=== PATIENT | female | born 1940 | race Caucasian/White ===

== ENCOUNTER → 2017-05-23 | Outpatient (CLI) | payer MEDICARE, BC ==
--- NOTE | 2017-05-23 10:42 | XR ---
EXAMINATION TYPE: XR chest 2V DATE OF EXAM: 05/23/2017 COMPARISON: NONE HISTORY: Malaise, shortness of breath and fatigue TECHNIQUE: Frontal and lateral views of the chest are obtained. FINDINGS: There is eventration of the right hemidiaphragm. No pneumonia, pneumothorax, or pleural ef fusion. Cardiac mediastinal silhouette, pulmonary vascularity and kuldeep within normal limits. There is a spinal curvature. IMPRESSION: No acute cardiopulmonary process.
== END ==
LOC: RADXRMAIN 09:11
PROVIDERS: ATTEND Family Medicine
DX: R53.81 Other malaise (principal)
CPT/HCPCS: 71020

== ENCOUNTER → 2017-06-16 | Outpatient (CLI) | payer MEDICARE, BC ==
--- NOTE | 2017-06-17 10:08 | ECHOF ---
Referral Reason:Fatigue R53.83 MEASUREMENTS -------- HEIGHT: 162.6 cm WEIGHT: 80.3 kg BP: 118/78 IVSd: 1.2 cm (0.6 - 1.1) LVIDd: 4.0 cm (3.9 - 5.3) LVPWd: 1.0 cm (0.6 - 1.1) IVSs: 1.2 cm LVIDs: 2.7 cm LVPWs: 1.5 cm LAESV Index (A-L): 30.92 ml/m Ao Diam: 2.4 cm (2.0 - 3.7) AV Cusp: 1.2 cm (1.5 - 2.6) LA Diam: 3.2 cm (2.7 - 3.8) MV EXCURSION: 11.106 mm (> 18.000) MV EF SLOPE: 66 mm/s (70 - 150) EPSS: 0.7 cm MV E Enmanuel: 0.83 m/s MV DecT: 335 ms MV A Enmanuel: 1.23 m/s MV E/A Ratio: 0.68 RAP: 5.00 mmHg RVSP: 11.22 mmHg FINDINGS -------- Sinus rhythm. This was a technically adequate study. There is mild concentric left ventricular hypertrophy. Overall left ventricular systolic function is normal with, an EF between 55 - 60 %. The right ventricle is normal in size. LA is midly dilated 29-33ml/m2. The right atrial size is normal. There is mild aortic valve sclerosis. The mitral valve leaflets are moderately thickened. Moderate mitral regurgitation is present. Mild tricuspid regurgitation present. There is no evidence of pulmonary hypertension. The right ventricular systolic pressure, as measured by Doppler, is 11.22mmHg. There is no pulmonic regurgitation present. The aortic root size is normal. There is no pericardial effusion. CONCLUSIONS -------- 1. There is mild concentric left ventricular hypertrophy. 2. Overall left ventricular systolic function is normal with, an EF between 55 - 60 %. 3. LA is midly dilated 29-33ml/m2. 4. There is mild aortic valve sclerosis. 5. The mitral valve leaflets are moderately thickened. 6. Moderate mitral regurgitation is present. 7. Mild tricuspid regurgitation present. 8. There is no evidence of pulmonary hypertension. 9. The right ventricular systolic pressure, as measured by Doppler, is 11.22mmHg. MOLD DUMPER: Isabel Ross RDCS
== END | disposition home or self-care (01) ==
LOC: RADECHMAIN 12:58
PROVIDERS: ATTEND Family Medicine
DX: I08.1 Rheumatic disorders of both mitral and tricuspid valves (principal); I10 Essential (primary) hypertension; R53.83 Other fatigue
CPT/HCPCS: 93306

== ENCOUNTER → 2017-09-08 | Outpatient (CLI) | payer MEDICARE, BC ==
--- NOTE | 2017-09-08 16:16 | BD ---
EXAMINATION TYPE: MG DEXA axial skeleton. DATE OF EXAM: 09/08/2017 CLINICAL HISTORY: 77-year-old female osteoarthritis, postmenopausal screening Height: 62.5 Weight: 173 FRAX RISK QUESTIONS: Alcohol (3 or more units per day): no Family History (Parent hip fracture): no Glucocorticoids (More than 3mos): no (Ex: prednisone, prednisolone, methylprednisolone, dexamethasone, and hydrocortisone). History of Fracture in Adulthood: lower leg Secondary Osteoporosis: 1. Type 1 Diabetes: no 2. Hyperthyroidism: no 3. Menopause before 45: no 4. Malnutrition: no 5. Chronic liver disease: no Rheumatoid Arthritis: no Current Tobacco Use: no RISK FACTORS HISTORY OF: Family History of Osteoporosis: yes; mother & sister Active: yes Diet low in dairy products/other sources of calcium: no Postmenopausal woman: yes Take estrogen and/or progesterone medications: not now How lon or 3 years Lost more than 2 inches in height since high school: no, not more than Frequent falls: no Poor Health: no Hyperparathyroidism: no Adrenal Insufficiency: no MEDICATIONS: Prednisone or other steroids: no Thyroid Medications: no Osteoporosis Medications: no Additional Medications: cholesterol meds; just started to take calcium & Vitamin D Additional History: osteoarthritis EXAM MEASUREMENTS: Bone mineral densitometry was performed using the boosk System. Bone mineral density as measured about the Lumbar spine is: ----- L1-L4(G/cm2): 1.021 T Score Values are as follows: ----- L2: -1.8 ----- L3: -0.8 ----- L4: -1.8 ----- L1-L4: -1.3 Bone mineral density has: Decreased -4.7% since study of: 07/09/2012 Bone mineral density about the R hip (g/cm2): 0.705 Bone mineral density about the L hip (g/cm2): 0.759 T Score values are as follows: -----R Neck: -2.4 -----L Neck: -2.0 -----R Total: -1.3 -----L Total: -1.5 Bone mineral density has: Decreased -5.6% since study of: 07/09/2012 IMPRESSION: Osteopenia (T Score between -2.5 and -1 as noted by T score values in the lumbar spine and both hips) . Note that measurements border on osteoporosis at the right hip. There is slightly increased risk of fracture and the patient may be considered for treatment. Re-Scre en 2-5 years. NOTE: T-SCORE=SD OF THE YOUNG ADULT MEAN.
== END | disposition home or self-care (01) ==
LOC: RADBDWWP 12:43
PROVIDERS: ATTEND Family Medicine
DX: M85.88 Other specified disorders of bone density and structure, other site (principal); M85.852 Other specified disorders of bone density and structure, left thigh; M85.851 Other specified disorders of bone density and structure, right thigh
CPT/HCPCS: 77080

== ENCOUNTER → 2018-03-24 | Outpatient (CLI) | payer MEDICARE, BC ==
--- NOTE | 2018-03-24 10:41 | MM ---
Reason for exam: follow-up at short interval from prior study. Last mammogram was performed 6 months ago. History: Patient is postmenopausal and has history of high-risk lesion on a previous biopsy at age 77. High risk US breast needle core RT of the right breast, September 23, 2017. Excisional biopsy of the right breast. Physical Findings: Nurse did not find any significant physical abnormalities on exam. MG 3D Diag Mammo W/Cad RT CC and MLO view(s) were taken of the right breast. Prior study comparison: September 23, 2017, right breast MG diagnostic mammo RT wo CAD. August 28, 2005, bilateral screening mammogram w/CAD. The breast tissue is heterogeneously dense. This may lower the sensitivity of mammography. Finding: There are typically benign vascular, round, linear calcifications in the right breast. Previous mammotome biopsy in the right breast. There is no dominant lesion. Asymmetric breast tissue in the right breast at clip and medial inferior aspect, stable. These results were verbally communicated with the patient and result sheet given to the patient on 03/24/18. ASSESSMENT: Benign, BI-RAD 2 RECOMMENDATION: Routine screening mammogram of both breasts in 6 months. Back on schedule.
== END | disposition home or self-care (01) ==
LOC: RADMAMWWP 10:02
PROVIDERS: ATTEND Surgery
DX: R92.8 Other abnormal and inconclusive findings on diagnostic imaging of breast (principal)
CPT/HCPCS: 77065; G0279

== ENCOUNTER → 2018-04-15 | Outpatient (CLI) | payer MEDICARE, BC ==
--- NOTE | 2018-04-15 11:58 | ECHOF ---
Referral Reason:R53.83 Fatigue,R55 Syncope MEASUREMENTS -------- HEIGHT: 160.0 cm WEIGHT: 80.3 kg BP: 137/71 RVIDd: 2.6 cm (< 3.3) IVSd: 1.0 cm (0.6 - 1.1) LVIDd: 3.4 cm (3.9 - 5.3) LVPWd: 1.1 cm (0.6 - 1.1) IVSs: 1.2 cm LVIDs: 2.4 cm LVPWs: 1.4 cm LA Diam: 2.6 cm (2.7 - 3.8) LAESV Index (A-L): 18.02 ml/m Ao Diam: 2.4 cm (2.0 - 3.7) AV Cusp: 1.3 cm (1.5 - 2.6) MV EXCURSION: 13.818 mm (> 18.000) MV EF SLOPE: 46 mm/s (70 - 150) EPSS: 0.6 cm MV E Enmanuel: 1.21 m/s MV DecT: 232 ms MV A Enmanuel: 1.39 m/s MV E/A Ratio: 0.87 AV maxP.41 mmHg AV meanP.47 mmHg RAP: 5.00 mmHg RVSP: 35.07 mmHg FINDINGS -------- Sinus rhythm with extra systolic beats. This was a technically good study. The left ventricular size is normal. There is borderline concentric left ventricular hypertrophy. Overall left ventricular systolic function is normal with, an EF between 55 - 60 %. The right ventricle is normal in size. Normal LA size by volume 22+/-6 ml/m2. The right atrium is normal in size. There is mild aortic valve sclerosis. The mitral valve leaflets are mild to moderately thickened. Moderate mitral annular calcification present. Mild tricuspid regurgitation present. There is mild pulmonary hypertension. The right ventricular systolic pressure, as measured by Doppler, is 35.07mmHg. The pulmonic valve was not well visualized. The aortic root size is normal. Normal inferior vena cava with normal inspiratory collapse consistent with estimated right atrial pre ssure of 5 mmHg. There is no pericardial effusion. CONCLUSIONS -------- 1. Sinus rhythm with extra systolic beats. 2. This was a technically good study. 3. The left ventricular size is normal. 4. There is borderline concentric left ventricular hypertrophy. 5. Overall left ventricular systolic function is normal with, an EF between 55 - 60 %. 6. The right ventricle is normal in size. 7. Normal LA size by volume 22+/-6 ml/m2. 8. The right atrium is normal in size. 9. There is mild aortic valve sclerosis. 10. The mitral valve leaflets are mild to moderately thickened. 11. Moderate mitral annular calcification present. 12. Mild tricuspid regurgitation present. 13. There is mild pulmonary hypertension. 14. The right ventricular systolic pressure, as measured by Doppler, is 35.07mmHg. 15. The pulmonic valve was not well visualized. 16. The aortic root size is normal. 17. Normal inferior vena cava with normal inspiratory collapse consistent with estimated right atrial pressure of 5 mmHg. 18. There is no pericardial effusion. [employer]ES DEMONSTRATOR: Jessica Morfin RDCS
--- NOTE | 2018-04-15 12:11 | US ---
EXAMINATION TYPE: US carotid duplex BILAT DATE OF EXAM: 04/15/2018 COMPARISON: US 05/22/2010 CLINICAL HISTORY: R53.83 Fatigue,R55 Syncope. EXAM MEASUREMENTS: RIGHT: Peak Systolic Velocity (PSV) cm/sec ----- Right CCA: 71.6 ----- Right ICA: 69.0 ----- Right ECA: 75.5 ICA/CCA ratio: 1.0 RIGHT: End Diastole cm/sec ----- Right CCA: 22.0 ----- Right ICA: 35.1 ----- Right ECA: 16.8 LEFT: Peak Systolic Velocity (PSV) cm/sec ----- Left CCA: 72.5 ----- Left ICA: 121.0 ----- Left ECA: 48.3 ICA/CCA ratio: 1.7 LEFT: End Diastole cm/sec ----- Left CCA: 27.3 ----- Left ICA: 43.4 ----- Left ECA: 9.8 VERTEBRALS (direction of flow): Right Vertebral: Antegrade Left Vertebral: Antegrade Rhythm: Arrhythmia Incidental thyroid nodule. Mild amount of plaque visualized bilaterally. No elevated velocities. Grayscale, color Doppler, spectral Doppler imaging performed of the carotid arteries. Waveform analys is does not show significant stenosis. IMPRESSION: No hemodynamic significant stenosis of the proximal internal carotid arteries bilaterall y by Doppler criteria, an indirect measurement of carotid stenosis. Cardiac arrhythmia. Additional findings above.
--- NOTE | 2018-04-15 13:01 | EST ---
EXERCISE STRESS DATE OF SERVICE: 04/15/2018 AGE: 78 SEX: F HT: 63" WT: 177 PROTOCOL: Baldo Stress Test STAGE: 1 DURATION OF EXERCISE: 2:00 HEART RATE REST: 104 BLOOD PRESSURE REST: 137/71 MAXIMUM HEART RATE ACHIEVED: 158 MAXIMUM BLOOD PRESSURE: 201/82 85% MPHR: 122 100% MPHR: 144 METS: 3.4 INDICATIONS: Syncope CLINICAL INFORMATION: STRESS DATA: Pretesting physical examination showed a heart rate of 104, pressure is 137/71 mmHg. Baseline EKG showed sinus mechanism. The patient exercised on the treadmill according to Baldo protocol for a total of 2 minutes and achieved 3.4 METS with max heart rate was 158 which is about 100% of maximum predicted heart rate. Maximum blood pressure was 201/82 mmHg. Clinically, the patient did not have any symptoms of chest pain or discomfort and the EKG did not show any significant ST or T- wave abnormalities consistent with ischemia. CONCLUSION: 1. Poor exercise tolerance. 2. Exaggerated hypertension in response to exercise. 3. Normal EKG in response to exercise. 4. Essentially normal stress test for the patient. MMODL / IJN: [id number] /
== END | disposition home or self-care (01) ==
LOC: RADUSMAIN 09:04
PROVIDERS: ATTEND Family Medicine
DX: I49.9 Cardiac arrhythmia, unspecified (principal); I65.23 Occlusion and stenosis of bilateral carotid arteries; I08.3 Combined rheumatic disorders of mitral, aortic and tricuspid valves; I27.20 Pulmonary hypertension, unspecified
CPT/HCPCS: 93017; 93306; 93880

== ENCOUNTER → 2018-09-25 | Outpatient (CLI) | payer MEDICARE, BC ==
--- NOTE | 2018-09-28 12:18 | MM ---
Reason for exam: screening (asymptomatic). Last mammogram was performed 6 months ago. History: Patient is postmenopausal and has history of high-risk lesion on a previous biopsy at age 77. High risk US breast needle core RT of the right breast, September 23, 2017. Excisional biopsy of the right breast. Physical Findings: A clinical breast exam by your physician is recommended on an annual basis and results should be correlated with mammographic findings. MG 3D Screening Mammo W/Cad Bilateral CC and MLO view(s) were taken. Prior study comparison: March 24, 2018, right breast MG 3d diag mammo w/cad RT. September 23, 2017, right breast MG diagnostic mammo RT wo CAD. Benign appearing bilateral calcifications. Previous mammotome biopsy in the right breast. There is chronic nodularity in the right breast. No significant changes when compared with prior studies. ASSESSMENT: Benign, BI-RAD 2 RECOMMENDATION: Routine screening mammogram of both breasts in 1 year.
== END | disposition home or self-care (01) ==
LOC: RADMAMWWP 09:52
PROVIDERS: ATTEND Surgery
DX: Z12.31 Encounter for screening mammogram for malignant neoplasm of breast (principal)
CPT/HCPCS: 77063; 77067

== ENCOUNTER 2019-09-09 07:48 | Day surgery (SDC) | payer MEDICARE, BC ==
[2019-09-07 10:33] VITALS: BMI 30.6
[~2019-09-09 07:48] MED LIST: LACTATED RINGERS 1,000 ML IV SCH
[2019-09-09 08:14] VITALS: RESP 16; TEMP 97.5
[2019-09-09] MEDS ORDERED: LIDOCAINE 1% 20 ML VIAL (10MG/ML) FOR IV START INTRADERMA ONE (08:20)
[2019-09-09] MEDS ORDERED: LIDOCAINE 1% INJ 10MG/ML (20 ML MDV) ONE (08:41)
[2019-09-09] MEDS ORDERED: PROPOFOL 10 MG/ML 20 ML VIAL IV ONE (08:41)
--- NOTE | 2019-09-09 08:46 | P.GSHP ---
History of Present Illness H&P Date: 09/09/19 Chief Complaint: Screening colonoscopy This a 79-year-old female who presents today for screening colonoscopy. Patient denies a significant GI complaints. Past Medical History Past Medical History: Hyperlipidemia Additional Past Medical History / Comment(s): hx of colon polyps History of Any Multi-Drug Resistant Organisms: None Reported Past Surgical History: Breast Surgery, Orthopedic Surgery Additional Past Surgical History / Comment(s): Left ankle surgery. Right breast-benign lumpectomy Past Anesthesia/Blood Transfusion Reactions: No Reported Reaction Smoking Status: Never smoker - Past Family History Sister(s) Family Medical History: Cancer Medications and Allergies Home Medications Medication Instructions Recorded Confirmed Type Aspirin [Children's Aspirin] 81 mg PO DAILY 09/22/17 09/09/19 History Simvastatin [Zocor] 20 mg PO DAILY 09/22/17 09/09/19 History Vit C/E/Zn/Coppr/Lutein/Zeaxan 1 each PO BID 09/07/19 09/09/19 History [Preservision Areds 2 Softgel] Allergies Allergy/AdvReac Type Severity Reaction Status Date / Time No Known Allergies Allergy Verified 09/09/19 08:04 Surgical - Exam Vital Signs Temp Pulse Resp BP Pulse Ox 97.5 F L 57 L 16 150/90 100 09/09/19 08:08 09/09/19 08:08 09/09/19 08:08 09/09/19 08:08 09/09/19 08:08 - General well developed, well nourished, no distress - Eyes PERRL - ENT normal pinna - Neck no masses - Respiratory normal expansion - Cardiovascular Rhythm: regular - Abdomen Abdomen: soft, non tender Assessment and Plan Assessment: We'll perform screening colonoscopy
--- NOTE | 2019-09-09 09:18 | P.OP ---
Date of Procedure: 09/09/19 Preoperative Diagnosis: Screening colonoscopy Postoperative Diagnosis: Severe diverticulosis of sigmoid colon Colonic polyp Procedure(s) Performed: Colonoscopy Anesthesia: MAC Surgeon: Kirby Andre Pathology: other (Sigmoid colon polyp, descending colon polyp) Condition: stable Disposition: PACU Description of Procedure: The patient's placed on the endoscopy table lateral position. She received IV sedation. Patient had digital rectal exam performed which revealed external hemorrhoids. Flexible colonoscope was then placed patient anus and passed throughout the colon. The; very tortuous. The adult colonoscope was exchanged for a pediatric colonoscope and then the scope was advanced to the ileocecal valve. The cecum was visualized. The cecum, ascending colon appeared normal. In the transverse colon there was a small polyp seen this was removed with the snare. However the polyp was dislodged after the snare and could not be retrieved. Several times made to find the polyp were this was impossible. This was scope was brought back and in the descending colon there was a another polyp seen this removed with cold forcep. Her diverticular changes of the descending colon. The scope was then brought back and the; there is extensive diverticular changes. The colon appeared to be quite tortuous and scarred. Scope was then withdrawn in the rectum another polyp seen this removed with the air. The scope was then withdrawn from the rectum.
[2019-09-09 09:38] VITALS: BP 130/81; PULSE 59
== END 2019-09-09 09:57 | disposition home or self-care (01) ==
LOC: ORWHC2ENDO 07:48
PROVIDERS: ATTEND Surgery
DX: Z12.11 Encounter for screening for malignant neoplasm of colon (principal); D12.4 Benign neoplasm of descending colon; D12.5 Benign neoplasm of sigmoid colon; K57.30 Diverticulosis of large intestine without perforation or abscess without bleeding; Q43.8 Other specified congenital malformations of intestine; K64.4 Residual hemorrhoidal skin tags; Z86.010 Personal history of colon polyps; E78.5 Hyperlipidemia, unspecified; Z98.51 Tubal ligation status; Z79.82 Long term (current) use of aspirin; Z79.899 Other long term (current) drug therapy
CPT/HCPCS: 88305; 45380; 45385; J2001; J2704

== ENCOUNTER → 2019-09-27 | Outpatient (CLI) | payer MEDICARE, BC ==
--- NOTE | 2019-09-28 07:40 | MM ---
Reason for exam: screening (asymptomatic). Last mammogram was performed 1 year ago. History: Patient is postmenopausal and has history of high-risk lesion on a previous biopsy at age 77. High risk US breast needle core RT of the right breast, September 23, 2017. Excisional biopsy of the right breast. Physical Findings: A clinical breast exam by your physician is recommended on an annual basis and results should be correlated with mammographic findings. MG 3D Screening Mammo W/Cad Bilateral CC and MLO view(s) were taken. Prior study comparison: September 25, 2018, bilateral MG 3d screening mammo w/cad. March 24, 2018, right breast MG 3d diag mammo w/cad RT. Right breast biopsy marker noted. No significant changes when compared with prior studies. ASSESSMENT: Negative, BI-RAD 1 RECOMMENDATION: Routine screening mammogram of both breasts in 1 year.
== END | disposition home or self-care (01) ==
LOC: RADMAMWWP 09:34
PROVIDERS: ATTEND Surgery
DX: Z12.31 Encounter for screening mammogram for malignant neoplasm of breast (principal)
CPT/HCPCS: 77063; 77067

== ENCOUNTER → 2020-10-04 | Outpatient (CLI) | payer MEDICARE ==
--- NOTE | 2020-10-05 07:25 | US ---
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 Thyroid nodule, history of thyroid F NA, patient on thyroid meds GLAND SIZE: Right Lobe: 3.9 x 2.2 x 2.4 cm Overall Parenchyma: heterogenous Left Lobe: 2.3 x 1.0 x 0.7 cm Overall Parenchyma: heterogeneous Isthmus Thickness: 0.3 cm NODULES RIGHT: # of nodules measured on right: 1 1. 2.2 X 1.9 x 1.8 cm hypoechoic solid nodule at the mid pole with well-defined margins. This nodul e is wider than tall and shows intranodular vascularity. Prior size: 3.3 x 1.9 x 1.9 cm LEFT: # of nodules measured on left: 0 ISTHMUS: # of nodules measured in the isthmus: 0 Bilateral neck scanned, no evidence of lymphadenopathy. Left lobe somewhat heterogeneous and small in size. IMPRESSION: Right thyroid nodule TR 4, moderately suspicious, lesion has decreased in size compared with prior ex am, consider fine-needle aspiration
== END | disposition home or self-care (01) ==
LOC: RADUSWWP 16:09
PROVIDERS: ATTEND Internal Medicine Endocrinology, Diabetes & Metabolism
DX: E05.20 Thyrotoxicosis with toxic multinodular goiter without thyrotoxic crisis or storm (principal)
CPT/HCPCS: 36415; 76536; 84439; 84443; 84480

== ENCOUNTER → 2020-11-20 | Outpatient (CLI) | payer MEDICARE, BC ==
--- NOTE | 2020-11-21 14:31 | MM ---
Reason for exam: screening (asymptomatic). Last mammogram was performed 1 year and 2 months ago. History: Patient is postmenopausal and has history of high-risk lesion on a previous biopsy at age 77. High risk US breast needle core RT of the right breast, September 23, 2017. Excisional biopsy of the right breast. Physical Findings: A clinical breast exam by your physician is recommended on an annual basis and results should be correlated with mammographic findings. MG 3D Screening Mammo W/Cad Bilateral CC and MLO view(s) were taken. Prior study comparison: September 27, 2019, bilateral MG 3d screening mammo w/cad. September 25, 2018, bilateral MG 3d screening mammo w/cad. The breast tissue is heterogeneously dense. This may lower the sensitivity of mammography. Previous mammotome biopsy in the right breast. Focal asymmetries bilateral, stable. No significant changes when compared with prior studies. ASSESSMENT: Benign, BI-RAD 2 RECOMMENDATION: Routine screening mammogram of both breasts in 1 year.
== END | disposition home or self-care (01) ==
LOC: RADMAMWWP 13:00
PROVIDERS: ATTEND Surgery
DX: Z12.31 Encounter for screening mammogram for malignant neoplasm of breast (principal)
CPT/HCPCS: 77063; 77067

== ENCOUNTER → 2021-01-05 | Outpatient (CLI) | payer MEDICARE, BC ==
--- NOTE | 2021-01-05 14:50 | US ---
EXAMINATION TYPE: US thyroid st tissue head/neck DATE OF EXAM: 01/05/2021 COMPARISON: NONE CLINICAL HISTORY: E04.1 thyroid nodule. Thyroid nodule GLAND SIZE: Right Lobe: 4.2 x 2.3 x 2.0 cm Overall Parenchyma: heterogenous Left Lobe: 3.0 x .7 x 1.2 cm Overall Parenchyma: homogeneous Isthmus Thickness: .3 cm NODULES RIGHT: # of nodules measured on right: 1 1. 2.5 X 1.9 x 2.1 cm solid or almost completely solid, hypoechoic nodule, which is wider than tall , with smooth margins, without echogenic foci. Prior size: 2.2 x 1.9 x 1.8 cm LEFT: # of nodules measured on left: 0 ISTHMUS: # of nodules measured in the isthmus: 0 Bilateral neck scanned, no evidence of lymphadenopathy. IMPRESSION: Stable nonspecific solid nodule right thyroid lobe. 2017 ACR TI-RADS LEVEL: *Highest TI-RADS level nodule reported
== END | disposition home or self-care (01) ==
LOC: RADUSWWP 14:07
PROVIDERS: ATTEND Family Medicine
DX: E04.1 Nontoxic single thyroid nodule (principal)
CPT/HCPCS: 76536

== ENCOUNTER → 2021-01-12 | Outpatient (CLI) | payer MEDICARE, BC | END | disposition home or self-care (01) | LOC: LABWHC1 11:18 | PROVIDERS: ATTEND Internal Medicine Endocrinology, Diabetes & Metabolism | DX: E05.00 Thyrotoxicosis with diffuse goiter without thyrotoxic crisis or storm (principal) | CPT/HCPCS: 36415; 84439; 84443; 84480 ==

== ENCOUNTER → 2021-05-25 | Outpatient (CLI) | payer MEDICARE, BC | END | disposition home or self-care (01) | LOC: LABWHC1 08:52 | PROVIDERS: ATTEND Internal Medicine Endocrinology, Diabetes & Metabolism | DX: E05.00 Thyrotoxicosis with diffuse goiter without thyrotoxic crisis or storm (principal) | CPT/HCPCS: 36415; 84439; 84443 ==

== ENCOUNTER → 2021-08-30 | Outpatient (CLI) | payer MEDICARE, BC ==
[2021-08-30 22:12] LABS: T4, Free (Free Thyroxine) 1.44 ng/dL (0.800-1.800)
== END | disposition home or self-care (01) ==
LOC: LABWHC1 09:52
PROVIDERS: ATTEND Internal Medicine Endocrinology, Diabetes & Metabolism
DX: E05.00 Thyrotoxicosis with diffuse goiter without thyrotoxic crisis or storm (principal)
CPT/HCPCS: 36415; 84439; 84443

== ENCOUNTER → 2022-04-02 | Outpatient (CLI) | payer MEDICARE, BC ==
[2022-04-02 15:06] LABS: T4, Free (Free Thyroxine) 1.25 ng/dL (0.800-1.800)
== END | disposition home or self-care (01) ==
LOC: LABWHC1 11:02
PROVIDERS: ATTEND Internal Medicine Endocrinology, Diabetes & Metabolism
DX: E05.00 Thyrotoxicosis with diffuse goiter without thyrotoxic crisis or storm (principal)
CPT/HCPCS: 36415; 84439; 84443; 84480

== ENCOUNTER → 2022-04-03 | Outpatient (CLI) | payer MEDICARE, BC ==
--- NOTE | 2022-04-03 11:27 | US ---
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 GLAND SIZE: Right Lobe: 4.2 x 2.0 x 1.8 cm Overall Parenchyma: heterogenous Left Lobe: 2.5 x 0.9 x 0.7 cm Overall Parenchyma: heterogeneous Isthmus Thickness: 0.4 cm NODULES RIGHT: # of nodules measured on right: 1 1. 2.6 X 1.8 x 2.1 cm, mid mid, mixed cystic and solid, hyperechoic nodule, which is taller than wi de, with lobulated or irregular margins, without echogenic foci. Prior size: 2.5 x 1.9 x 2.1 cm LEFT: # of nodules measured on left: 0 ISTHMUS: # of nodules measured in the isthmus: 0 Bilateral neck scanned, no evidence of lymphadenopathy. IMPRESSION: Stable nonspecific nodule right thyroid nodule
== END | disposition home or self-care (01) ==
LOC: RADUSWWP 10:48
PROVIDERS: ATTEND Internal Medicine Endocrinology, Diabetes & Metabolism
DX: E04.1 Nontoxic single thyroid nodule (principal)
CPT/HCPCS: 76536

== ENCOUNTER → 2022-08-01 | Outpatient (CLI) | payer MEDICARE, BC ==
[2022-08-01 19:04] LABS: African American GFR (CKD) 94.8 (60.0-200.0); Albumin 4.4 g/dL (3.8-4.9); Albumin/Globulin Ratio 1.42 (1.60-3.17); Anion Gap 12.6 mmol/L (10.00-18.00); BUN/Creat Ratio 27.71 Ratio (12.00-20.00); Blood Urea Nitrogen 19.4 mg/dL (9.0-27.0); Calcium 9.6 mg/dL (8.7-10.3); Carbon Dioxide 26.4 mmol/L (20.0-27.5); Globulin 3.1 g/dL (1.6-3.3); Non-African American GFR(CKD) 81.8 (60.0-200.0); Potassium 4.9 mmol/L (3.5-5.5); T4, Free (Free Thyroxine) 1.35 ng/dL (0.800-1.800); Total Bilirubin 0.5 mg/dL (0.30-1.20); Total Protein 7.5 g/dL (6.2-8.2)
== END | disposition home or self-care (01) ==
LOC: LABWHC1 10:26
PROVIDERS: ATTEND Internal Medicine Endocrinology, Diabetes & Metabolism
DX: E05.00 Thyrotoxicosis with diffuse goiter without thyrotoxic crisis or storm (principal)
CPT/HCPCS: 36415; 80053; 84439; 84443; 84480

== ENCOUNTER → 2022-11-20 | Outpatient (CLI) | payer MEDICARE, BC ==
[2022-11-20 21:07] LABS: T4, Free (Free Thyroxine) 1.22 ng/dL (0.800-1.800)
== END | disposition home or self-care (01) ==
LOC: LABWHC1 11:33
PROVIDERS: ATTEND Internal Medicine Endocrinology, Diabetes & Metabolism
DX: E05.90 Thyrotoxicosis, unspecified without thyrotoxic crisis or storm (principal)
CPT/HCPCS: 36415; 84439; 84443; 84480

== ENCOUNTER → 2023-03-14 | Outpatient (CLI) | payer MEDICARE, BC ==
--- NOTE | 2023-03-14 15:49 | US ---
EXAMINATION TYPE: US thyroid st tissue head/neck DATE OF EXAM: 03/14/2023 COMPARISON: NONE CLINICAL INDICATION: Female, 83 years old with history of E04.1 NONTOXIC SINGLE THYROID NOD; F/U GLAND SIZE: Right Lobe: 4.2 x 2.3 x 2.5 cm Overall Parenchyma: heterogenous Left Lobe: 3.1 x 0.7 x 1.1 cm Overall Parenchyma: heterogeneous Isthmus Thickness: 0.3 cm NODULES RIGHT: # of nodules measured on right: 1 1. 2.5 X 1.8 x 2.1 cm, mid solid or almost completely solid, hypoechoic nodule, which is wider than tall, with smooth margins, without echogenic foci. TR 4 Prior size: 2.6 x 1.8 x 2.1 cm LEFT: # of nodules measured on left: 0 ISTHMUS: # of nodules measured in the isthmus: 0 Bilateral neck scanned, no evidence of lymphadenopathy. IMPRESSION: Moderately suspicious right lobe thyroid nodule. Fine-needle aspiration recommended if not previously performed 2017 ACR TI-RADS LEVEL: TR-RADS 4 - Moderately Suspicious: Follow if > 1 cm, FNA if > 1.5 cm *Highest TI-RADS level nodule reported
== END | disposition home or self-care (01) ==
LOC: RADUSWWP 10:03
PROVIDERS: ATTEND Internal Medicine Endocrinology, Diabetes & Metabolism
DX: E04.1 Nontoxic single thyroid nodule (principal)
CPT/HCPCS: 76536

== ENCOUNTER → 2023-03-24 | Outpatient (CLI) | payer MEDICARE, BC ==
[2023-03-24 17:06] LABS: T4, Free (Free Thyroxine) 1.35 ng/dL (0.800-1.800)
== END | disposition home or self-care (01) ==
LOC: LABWHC1 10:40
PROVIDERS: ATTEND Internal Medicine Endocrinology, Diabetes & Metabolism
DX: E05.90 Thyrotoxicosis, unspecified without thyrotoxic crisis or storm (principal)
CPT/HCPCS: 36415; 84439; 84443; 84480

== ENCOUNTER → 2023-07-01 | Outpatient (CLI) | payer MEDICARE, BC ==
[2023-07-01 15:49] LABS: T4, Free (Free Thyroxine) 1.31 ng/dL (0.80-1.80)
== END | disposition home or self-care (01) ==
LOC: LABWHC1 08:13
PROVIDERS: ATTEND Internal Medicine Endocrinology, Diabetes & Metabolism
DX: E05.90 Thyrotoxicosis, unspecified without thyrotoxic crisis or storm (principal)
CPT/HCPCS: 36415; 84439; 84443; 84480

== ENCOUNTER → 2023-09-17 | Outpatient (CLI) | payer MEDICARE, BC ==
--- NOTE | 2023-09-17 10:56 | XR ---
EXAMINATION TYPE: XR lumbosacral spine min 4V DATE OF EXAM: 09/17/2023 CLINICAL HISTORY: pain COMPARISON: NONE TECHNIQUE: Frontal, lateral, and oblique images of the lumbar spine are obtained. FINDINGS: There are 5 lumbar type vertebral bodies identified. The lumbar spine shows satisfactory alignment without evidence of acute fracture or dislocation. Vertebral body heights are within normal limits. [id number] multilevel degenerative disc space narrowing. Grade 1 anterolisthesis L4-L5 measuring 8 mm. Curvature seen convex to the left. Suspect cholelithiasis. The overlying soft tiss ue appears unremarkable. IMPRESSION: No acute fracture or dislocation is seen in the lumbar spine.ICD 10 NO FRACTURE, INITIAL EVALUATION
--- NOTE | 2023-09-17 10:57 | XR ---
EXAMINATION TYPE: XR knee complete bilateral DATE OF EXAM: 09/17/2023 CLINICAL HISTORY: pain TECHNIQUE: Three views of the bilateral knees are obtained. COMPARISON: None. FINDINGS: There is no acute fracture/dislocation. The tri-compartment joint spaces appear mildly na rrowed. The overlying soft tissue appears unremarkable. IMPRESSION: There is no acute fracture or dislocation ICD 10 NO FRACTURE, INITIAL EVALUATION
--- NOTE | 2023-09-17 10:57 | XR ---
EXAMINATION TYPE: XR Hip Bilateral Complete DATE OF EXAM: 09/17/2023 CLINICAL HISTORY: pain TECHNIQUE: AP and frogleg views of the bilateral hips are obtained. COMPARISON: None. FINDINGS: There is no acute fracture/dislocation evident. The joint space appears mildly narrowed. Calcification adjacent to the greater trochanter on the right reflect greater trochanteric bursitis . The overlying soft tissue appears unremarkable. IMPRESSION: 1. There is no acute fracture or dislocation. ICD 10 NO FRACTURE, INITIAL EVALUATION
== END | disposition home or self-care (01) ==
LOC: RADXRMAIN 10:07
PROVIDERS: ATTEND Family Medicine
DX: M25.551 Pain in right hip (principal); M25.561 Pain in right knee; M25.552 Pain in left hip; M25.562 Pain in left knee; M54.50 Low back pain, unspecified
CPT/HCPCS: 72110; 73521

== ENCOUNTER → 2023-09-19 | Outpatient (CLI) | payer MEDICARE, BC ==
--- NOTE | 2023-09-19 10:56 | MM ---
Reason for Exam: Screening (asymptomatic). Last mammogram was performed 2 year(s) and 10 month(s) ago. Patient History: Menarche at age 17. Postmenopausal. Excisional Biopsy on the Right side. 09/23/2017, High risk Core Biopsy on the right side. Sister had breast cancer, age 80. Risk Values: Tequila 5 year model risk: 4.1%. NCI Lifetime model risk: 5.9%. Prior Study Comparison: 09/25/2018 Bilateral Screening Mammogram, [facility]. 09/27/2019 Bilateral Screening Mammogram, [facility]. 11/20/2020 Bilateral Screening Mammogram, [facility]. Tissue Density: The breast tissue is heterogeneously dense. This may lower the sensitivity of mammography. Findings: Analyzed By CAD. There is no suspicious group of microcalcifications or new suspicious mass in either breast.. Mammotome biopsy of the right breast. Stable focal asymmetries bilaterally. Benign calcifications within both breasts. Overall Assessment: Benign, BI-RAD 2 Management: Screening Mammogram of both breasts in 1 year. A clinical breast exam by your physician is recommended on an annual basis and results should be correlated with mammographic findings. Note on Tequila scores and lifetime risk: 1. A Tequila score greater than 3% is considered moderate risk. If this is the case, consider specialist referral to assess eligibility for a risk reducing agent. If overall lifetime risk for the development of breast cancer is 20% or higher, the patient may qualify for future screening with alternating mammogram and breast MRI. Electronically signed and approved by: Jose Daniel Lomax D.O.
== END | disposition home or self-care (01) ==
LOC: RADMAMWWP 07:24
PROVIDERS: ATTEND Family Medicine
DX: Z12.31 Encounter for screening mammogram for malignant neoplasm of breast (principal); Z80.3 Family history of malignant neoplasm of breast; Z78.0 Asymptomatic menopausal state
CPT/HCPCS: 77063; 77067

== ENCOUNTER → 2023-09-30 | Outpatient (CLI) | payer MEDICARE, BC ==
[2023-10-01 01:01] LABS: T4, Free (Free Thyroxine) 1.25 ng/dL (0.80-1.80)
== END | disposition home or self-care (01) ==
LOC: LABWHC1 12:58
PROVIDERS: ATTEND Internal Medicine Endocrinology, Diabetes & Metabolism
DX: E05.90 Thyrotoxicosis, unspecified without thyrotoxic crisis or storm (principal)
CPT/HCPCS: 36415; 84439; 84443; 84480

== ENCOUNTER → 2023-10-03 | Outpatient (CLI) | payer MEDICARE, BC ==
--- NOTE | 2023-10-03 08:18 | US ---
EXAMINATION TYPE: US gallbladder DATE OF EXAM: 10/03/2023 COMPARISON: NONE CLINICAL INDICATION: Female, 83 years old with history of K80.00 CALCULUS OF GALLBLADDER W; No pain. Patient states having an xray that showed possible gallstones. TECHNIQUE: Multiple sonographic images of the right upper quadrant are obtained. FINDINGS: EXAM MEASUREMENTS: Liver Length: 10.7 cm Gallbladder Wall: 0.1 cm CBD: 0.3 cm Right Kidney: 9.2 x 4.8 x 4.7 cm Pancreas: Echogenic in appearance, limited visualization of tail Liver: wnl Gallbladder: Folds seen. Three mobile stones seen, with largest- 0.7 cm Evidence for sonographic Brown's sign: neg CBD: wnl Right Kidney: Medial anechoic lesion at hilum - 1.1 x 1.3 cm. Lower mid pole anechoic lesion in low er pole = 1.6 x 1.0 x 0.8 cm. Visualized portions of the pancreas unremarkable. The liver is unremarkable without evidence of focal lesion. Cholelithiasis demonstrate. No evidence of wall thickening or surrounding fluid. Negative so nographic Brown's sign. Common bile duct is within normal limits. Right kidney demonstrate no eviden ce of hydronephrosis. Simple cysts identified. No solid mass or nephrolithiasis. IMPRESSION: 1. No acute process. 2. Cholelithiasis without evidence for acute cholecystitis. 3. Right renal simple cysts.
== END | disposition home or self-care (01) ==
LOC: RADUSWWP 07:30
PROVIDERS: ATTEND Family Medicine
DX: K80.20 Calculus of gallbladder without cholecystitis without obstruction (principal); N28.1 Cyst of kidney, acquired
CPT/HCPCS: 76705

== ENCOUNTER → 2024-10-01 | Outpatient (CLI) | payer MEDICARE, BC ==
--- NOTE | 2024-10-08 12:14 | MM ---
Reason for Exam: Screening (asymptomatic). Last mammogram was performed 1 year(s) and 1 month(s) ago. Patient History: Menarche at age 17. Postmenopausal. Excisional Biopsy on the Right side. 09/23/2017, High risk Core Biopsy on the right side. Sister had breast cancer, age 80. Risk Values: Tequila 5 year model risk: 4.0%. NCI Lifetime model risk: 5.3%. Prior Study Comparison: 09/27/2019 Bilateral Screening Mammogram, [facility]. 11/20/2020 Bilateral Screening Mammogram, [facility]. 09/19/2023 Bilateral MG 3D screening mammo w/cad, [facility]. Tissue Density: The breasts are heterogeneously dense, which may obscure small masses. Findings: Analyzed By CAD. Right breast biopsy clip. Right breast: There is no suspicious group of microcalcifications or new suspicious mass. Benign-appearing calcifications right breast. Left breast: There is no suspicious group of microcalcifications or new suspicious mass. Benign-appearing calcifications left breast. Overall Assessment: Benign, BI-RAD 2 Management: Screening Mammogram of both breasts in [address] [facility] will attempt to contact patient to return for supplemental views and ultrasound if indicated. Patient should continue monthly self-breast exams. A clinical breast exam by your physician is recommended on an annual basis. This exam should not preclude additional follow-up of suspicious palpable abnormalities. Note on Tequila scores and lifetime risk: 1. A Tequila score greater than 3% is considered moderate risk. If this is the case, consider specialist referral to assess eligibility for a risk reducing agent. 2. If overall lifetime risk for the development of breast cancer is 20% or higher, the patient may qualify for future screening with alternating mammogram and breast MRI. [facility], , 10/08/2024 12:11 PM. Electronically signed and approved by: Desean Ventura DO
== END | disposition home or self-care (01) ==
LOC: RADMAMWWP 14:27
PROVIDERS: ATTEND Surgery
DX: Z12.31 Encounter for screening mammogram for malignant neoplasm of breast (principal); R92.333 Mammographic heterogeneous density, bilateral breasts; Z78.0 Asymptomatic menopausal state; Z80.3 Family history of malignant neoplasm of breast
CPT/HCPCS: 77063; 77067

== ENCOUNTER → 2024-10-14 | Outpatient (CLI) | payer MEDICARE, BC ==
[2024-10-14 16:31] LABS: T4, Free (Free Thyroxine) 1.22 ng/dL (0.80-1.80)
== END | disposition home or self-care (01) ==
LOC: LABWHC1 11:46
PROVIDERS: ATTEND Internal Medicine Endocrinology, Diabetes & Metabolism
DX: E05.90 Thyrotoxicosis, unspecified without thyrotoxic crisis or storm (principal)
CPT/HCPCS: 36415; 84439; 84443; 84480

== ENCOUNTER → 2024-12-01 | Outpatient (CLI) | payer MEDICARE, BC ==
--- NOTE | 2024-12-01 11:17 | US ---
EXAMINATION TYPE: US thyroid st tissue head/neck DATE OF EXAM: 12/01/2024 COMPARISON: US(03/14/2023) CLINICAL INDICATION: Female, 84 years old with history of E04.1 THYROID NODULE; TECHNIQUE: Grayscale and color Doppler imaging of the thyroid gland. FINDINGS: GLAND SIZE: Right Lobe: 4.1x2.3x2.3 cm Overall Parenchyma: heterogeneous Left Lobe: 2.6x0.5x1.3 cm Overall Parenchyma: heterogeneous Isthmus Thickness: 0.3 cm NODULES RIGHT: # of nodules measured on right: 1 1. 2.9 X 2.0 x 2.1 cm, mid mid, solid or almost completely solid, hypoechoic TR 4 nodule, which is wider than tall, with smooth margins, without echogenic foci. Prior size: 2.5 x 2.1 x 1.8 cm LEFT: # of nodules measured on left: 0 ISTHMUS: # of nodules measured in the isthmus: 0 Bilateral neck scanned, no evidence of lymphadenopathy. IMPRESSION: TR4 nodule in the right lobe measures 2.9 cm now versus 2.5 cm, previously. The nodule meets criteria for FNA. The left lobe is small. 2017 ACR TI-RADS LEVEL: TR-RADS 4 - Moderately Suspicious: Follow if > 1 cm, FNA if > 1.5 cm *Highest TI-RADS level nodule reported [facility], Workstation: [email or web address], 12/01/2024 11:15 AM
== END | disposition home or self-care (01) ==
LOC: RADUSWWP 10:18
PROVIDERS: ATTEND Internal Medicine Endocrinology, Diabetes & Metabolism
DX: E04.1 Nontoxic single thyroid nodule (principal)
CPT/HCPCS: 76536

== ENCOUNTER → 2025-02-24 | Outpatient (CLI) | payer MEDICARE, BC ==
[2025-02-24 19:24] LABS: T4, Free (Free Thyroxine) 1.37 ng/dL (0.80-1.80)
== END | disposition home or self-care (01) ==
LOC: LABWHC1 11:45
PROVIDERS: ATTEND Internal Medicine Endocrinology, Diabetes & Metabolism
DX: E05.90 Thyrotoxicosis, unspecified without thyrotoxic crisis or storm (principal)
CPT/HCPCS: 36415; 84439; 84443; 84480

== ENCOUNTER → 2025-06-15 | Outpatient (CLI) | payer MEDICARE, BC ==
--- NOTE | 2025-06-16 12:52 | BD ---
EXAMINATION TYPE: Axial Bone Density DATE OF EXAM: 06/15/2025 CLINICAL HISTORY: 85 years old Female. ICD-10 CODE: Z78.0 MENOPAUSAL STATE , Additional History: Height: 61.5 in Weight: 162 lbs FRAX RISK QUESTIONS: Family History (Parent hip fracture): yes father History of Fracture in Adulthood: lt ankle fx age 36 MEDICATIONS: Thyroid Medications: yes Which medication: unknown How Lon years EXAM MEASUREMENTS: Bone mineral densitometry was performed using the [employer] System. Bone mineral density as measured about the Lumbar spine is: ----- L1-L4(G/cm2): 1.025 T Score Values are as follows: ----- L1: -1.7 ----- L2: -2.0 ----- L3: -0.4 ----- L4: -1.2 ----- L1-L4: -1.3 Z Score Values are as follows: ----- L1: -0.1 ----- L2: -0.4 ----- L3: 1.2 ----- L4: 0.4 ----- L1-L4: 0.3 Bone mineral density has: Increased 0.4% since study of: 09/08/2017 Bone mineral density about the R hip (g/cm2): 0.808 Bone mineral density about the L hip (g/cm2): 0.769 T Score values are as follows: -----R Neck: -2.3 -----L Neck: -2.2 -----R Total: -1.6 -----L Total: -1.9 Z Score values are as follows: -----R Neck: -0.2 -----L Neck: -0.1 -----R Total: 0.4 -----L Total: 0.1 Bone mineral density has: Decreased -4.7% since study of: 09/08/2017 FRAX%s: The graph provided illustrates a 42.0% chance for a major osteoporotic fx and a 28.5% chance for the hips probability for fx in 10 years time. IMPRESSION: Osteopenia (T Score between -2.5 and -1). There is slightly increased risk of fracture and the patient may be considered for treatment. Re-Screen 2-5 years. NOTE: T-SCORE=SD OF THE YOUNG ADULT MEAN. [facility], , 06/16/2025 12:50 PM
== END | disposition home or self-care (01) ==
LOC: RADBDWWP 06:54
PROVIDERS: ATTEND Family Medicine
DX: M85.89 Other specified disorders of bone density and structure, multiple sites (principal); Z78.0 Asymptomatic menopausal state; Z90.12 Acquired absence of left breast and nipple
CPT/HCPCS: 77080